=== PATIENT | female | born 1975 | race Caucasian/White ===

== ENCOUNTER 2022-01-20 13:36 | Emergency (ER) | payer OTHER ==
[2022-01-20 16:41] LABS: HEMOGLOBIN 11.5 gm/dl (12.3-15.3); RED BLOOD COUNT 3.77 M/UL (4.00-5.10); WHITE BLOOD COUNT 8.5 K/UL (4.5-11.0)
[2022-01-20] MEDS ORDERED: COLACE100 MG PO (19:26)
[2022-01-20] MEDS ORDERED: MAGNESIUM CITR296 ML PO (19:26)
== END 2022-01-20 20:06 | disposition home or self-care (01) ==
LOC: ER1 13:36
PROVIDERS: Emergency Medicine
DX: K59.00 Constipation, unspecified (principal)
CPT/HCPCS: 74019; 80053; 81001; 83690; 85025; 96374; 96375; 99284; J1885; J2270; Q9963; Q9967